=== PATIENT | female | born 1980 | race Hispanic/Latino ===

== ENCOUNTER 2020-05-26 08:20 | Emergency (ER) | payer SELFPAY ==
[2020-05-26 08:53] LABS: Urine Blood 3+ (Negative); Urine Glucose Negative (Negative); Urine Protein 3+ (Negative); Urine Specific Gravity >=1.030 (1.005-1.030); Urine pH 6.5 (5.0-7.0)
[2020-05-26] MEDS ORDERED: NA CHLORIDE 0.9% 1,000 ML ONE (09:26)
[2020-05-26] MEDS ORDERED: MORPHINE 2 MG/ML SYR ONE ×2 (09:26→10:55)
[2020-05-26] MEDS ORDERED: ONDANSETRON 4 MG/2 ML VIAL ONE (09:26)
[2020-05-26] MEDS ORDERED: CEFTRIAXONE/SWI 1gm 1 GM/10 ML SYR ONE (09:27)
[2020-05-26 09:31] LABS: Absolute Lymphocytes (CBC) 1.8 K/uL (0.7-4.9); Basophils % 0.4 % (0-1.3); MPV 8.6 fL (7.6-11.3); RBC Red Blood Cell Count 3.77 M/uL (3.86-4.86)
[2020-05-26 09:36] LABS: Urine Specific Gravity/Preg >1.030 (1.005-1.030)
[2020-05-26 09:43] LABS: ALT/SGPT 20 U/L (12-78); AST/SGOT 18 U/L (15-37); Albumin 3.6 g/dL (3.4-5.0); Alkaline Phosphatase 119 U/L (45-117); BUN Blood Urea Nitrogen 17 mg/dL (7-18); Bicarbonate 25 mmol/L (21-32); Bilirubin Direct < 0.1 mg/dL (0-0.2); Bilirubin Total 0.4 mg/dL (0.2-1.0); Glucose Level 98 mg/dL (74-106); Lipase 82 U/L (73-393); Potassium 3.8 mmol/L (3.5-5.1); Protein, Total 7.5 g/dL (6.4-8.2); Sodium Level 139 mmol/L (136-145)
--- NOTE | 2020-05-26 10:34 | RAD REPORT ---
EXAM DESCRIPTION: CT - Abdomen Pelvis W Contrast - 05/26/2020 9:56 am CLINICAL HISTORY: Abdominal pain COMPARISON: none. TECHNIQUE: Computed axial tomography of the abdomen pelvis was obtained. 100 cc Isovue-300 was admin istered intravenously. Oral contrast was not requested which limits evaluation of bowel and appendix. All CT scans are performed using dose optimization technique as appropriate and may include automated exposure control or mA/KV adjustment according to patient size. FINDINGS: The liver, spleen, pancreas, adrenal and kidneys appear unremarkable. There is no evidence of diverticulitis. Appendix is not clearly seen. Cholecystectomy Bladder wall is thickened. Small right inguinal hernia contains IMPRESSION: Thickened bladder wall may indicate cystitis
[2020-05-26] MEDS ORDERED: Levofloxacin500mg IV 500 MG/100 ML BAG IV ONE (10:39)
--- NOTE | 2020-05-26 11:15 | ER ---
Nurse's Notes [facility] Name: Eden Gallardo Age: 40 yrs Sex: Female : 1980 Arrival Date: 05/26/2020 Time: 08:21 Bed 19 Private MD: Diagnosis: Dysuria;Urinary tract infection, site not specified;Abdominal tenderness Presentation: 05/26 08:53 Chief complaint: Patient states: "I am having some bleeding for the past 2 days with jd3 cramping in my lower stomach that travels to my back on both sides.". Coronavirus screen: At this time, the client does not indicate any symptoms associated with coronavirus-19. Ebola Screen: Patient negative for fever greater than or equal to 101.5 degrees Fahrenheit, and additional compatible Ebola Virus Disease symptoms. Initial Sepsis Screen: Does the patient meet any 2 criteria? No. Patient's initial sepsis screen is negative. Does the patient have a suspected source of infection? No. Patient's initial sepsis screen is negative. Risk Assessment: Do you want to hurt yourself or someone else? Patient reports no desire to harm self or others. Onset of symptoms was May 24, 2020. 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 - Social history:: Smoking status: Patient denies any tobacco usage or history of. Screenin:59 Abuse screen: Denies threats or abuse. Nutritional screening: No deficits noted. jd3 Tuberculosis screening: No symptoms or risk factors identified. Fall Risk Ambulatory Aid- None/Bed Rest/Nurse Assist (0 pts). Gait- Normal/Bed Rest/Wheelchair (0 pts) Mental Status- Oriented to own ability (0 pts). Total Duran Fall Scale indicates No Risk (0-24 pts). Assessment: 08:56 General: Appears in no apparent distress. comfortable, Behavior is calm, cooperative, jd3 appropriate for age. Pain: Complains of pain in suprapubic area Pain radiates to low back area Quality of pain is described as aching, crampy. Neuro: Level of Consciousness is awake, alert, obeys commands, Oriented to person, place, time, situation. Cardiovascular: Denies chest pain, Capillary refill < 3 seconds Patient's skin is warm and dry. Respiratory: Airway is patent Respiratory effort is even, unlabored, Respiratory pattern is regular, symmetrical, Denies cough, shortness of breath. GI: Patient currently denies diarrhea, nausea, vomiting. : Urine is blood tinged, Reports cramping, vaginal bleeding that is spotty. EENT: No signs and/or symptoms were reported regarding the EENT system. Derm: Skin is intact, Skin is dry, Skin is normal, Skin temperature is warm. Musculoskeletal: Circulation, motion, and sensation intact. Range of motion: intact in all extremities. 10:04 Reassessment: Patient appears in no apparent distress at this time. Patient and/or jd3 family updated on plan of care and expected duration. Pain level reassessed. Patient is alert, oriented x 3, equal unlabored respirations, skin warm/dry/pink. Patient states feeling better. Vital Signs: 08:55 BP 112 / 74; Pulse 70; Resp 16 S; Temp 98.0(O); Pulse Ox 100% on R/A; Weight 81.65 kg jd3 (R); Pain 10/10; 10:04 BP 109 / 69; Pulse 91; Resp 16 S; Pulse Ox 100% on R/A; jd3 ED Course: 08:21 Patient arrived in ED. am2 08:52 Jose Ashraf MD is Attending Physician. quinton 08:53 Fredi Burch, TARA is Primary Nurse. jd3 08:55 Triage completed. jd3 08:56 Arm band placed on. jd3 08:59 Patient has correct armband on for positive identification. Placed in gown. Bed in low jd3 position. Call light in reach. Side rails up X 1. Adult w/ patient. Pulse ox on. NIBP on. 09:17 Inserted saline lock: 20 gauge in right antecubital area, using aseptic technique. jd3 Blood collected. placed by [employer] supervised by Gareth PACHECO. 09:55 Urine Dipstick-Ancillary [facility] 09:56 CT Abd/Pelvis - IV Contrast Only In Process Unspecified. EDMT 09:56 Urine collected: clean catch specimen, clear. [facility] 11:13 Jackson Anderson MD is Referral Physician. [facility] 12:05 No provider procedures requiring assistance completed. IV discontinued, intact, iw bleeding controlled, No redness/swelling at site. Pressure dressing applied. Administered Medications: 09:39 Drug: NS 0.9% 1000 ml Route: IV; Rate: 1 bolus; Site: right antecubital; jd3 09:39 Drug: morphine 2 mg Route: IVP; Site: right antecubital; jd3 10:30 Follow up: Response: No adverse reaction; RASS: Alert and Calm (0) jd3 09:39 Drug: Zofran (Ondansetron) 4 mg Route: IVP; Site: right antecubital; jd3 10:30 Follow up: Response: No adverse reaction iw 09:39 Drug: Rocephin - (cefTRIAXone) 1 grams Route: IVPB; Infused Over: 30 mins; Site: right jd3 antecubital; 10:37 Drug: levofloxacin 500 mg Volume: 100 ml; Route: IVPB; Infused Over: 60 mins; Site: jd3 right antecubital; 11:35 Follow up: IV Status: Completed infusion iw 10:42 Drug: morphine 2 mg Route: IVP; Site: right antecubital; jd3 12:00 Follow up: Response: No adverse reaction; Pain is decreased iw Outcome: 11:15 Discharge ordered by . [facility] 12:05 Discharged to home ambulatory. 12:05 Condition: good 12:05 Discharge instructions given to patient, Instructed on discharge instructions, follow up and referral plans. medication usage, Demonstrated understanding of instructions, follow-up care, medications, Prescriptions given X 3. 12:05 Patient left the ED. Signatures: Dispatcher [employer] EDMT Jose Ashraf MD MD cha Williams, Irene, RN TARA Arminda Rahman [facility] Patsy Matthew Jonathon, RN RN jd3
--- NOTE | 2020-05-26 11:15 | EDPHYS ---
Physician Documentation [facility] Name: Eden Gallardo Age: 40 yrs Sex: Female : 1980 Arrival Date: 05/26/2020 Time: 08:21 Bed 19 Private MD: ED Physician Jose Ashraf HPI: 05/26 09:01 This 40 yrs old Female presents to ER via Ambulatory with complaints of quinton Vaginal Bleeding, Pelvic Pain. 09:01 The patient presents with urinary symptoms, dysuria, frequency. Onset: The quinton symptoms/episode began/occurred 3 day(s) ago. [place] MATE: 08:55 LMP N/A - Irregular menses jd3 Historical: - Allergies: 08:55 No Known Allergies; jd3 - Home Meds: 08:55 None [Active]; jd3 - PMHx: 08:55 None; jd3 - PSHx: 08:55 ; jd3 - Immunization history:: Adult Immunizations not immunized. - Social history:: Smoking status: Patient denies any tobacco usage or history of. ROS: 09:02 Constitutional: Negative for fever, chills, and weight loss, Eyes: Negative for injury, quinton pain, redness, and discharge, ENT: Negative for injury, pain, and discharge, Neck: Negative for injury, pain, and swelling, Cardiovascular: Negative for chest pain, palpitations, and edema, Respiratory: Negative for shortness of breath, cough, wheezing, and pleuritic chest pain, Back: Negative for injury and pain, MS/Extremity: Negative for injury and deformity, Skin: Negative for injury, rash, and discoloration, Neuro: Negative for headache, weakness, numbness, tingling, and seizure, Psych: Negative for depression, anxiety, suicide ideation, homicidal ideation, and hallucinations, Allergy/Immunology: Negative for hives, rash, and allergies, Endocrine: Negative for neck swelling, polydipsia, polyuria, polyphagia, and marked weight changes, Hematologic/Lymphatic: Negative for swollen nodes, abnormal bleeding, and unusual bruising. 09:02 Abdomen/GI: Positive for abdominal pain, of the left upper quadrant, right lower quadrant and left lower quadrant. 09:02 : Positive for urinary frequency, burning with urination, difficulty urinating. Exam: 09:02 Constitutional: This is a well developed, well nourished patient who is awake, alert, quinton and in no acute distress. Head/Face: Normocephalic, atraumatic. Eyes: Pupils equal round and reactive to light, extra-ocular motions intact. Lids and lashes normal. Conjunctiva and sclera are non-icteric and not injected. Cornea within normal limits. Periorbital areas with no swelling, redness, or edema. ENT: Nares patent. No nasal discharge, no septal abnormalities noted. Tympanic membranes are normal and external auditory canals are clear. Oropharynx with no redness, swelling, or masses, exudates, or evidence of obstruction, uvula midline. Mucous membranes moist. Neck: Trachea midline, no thyromegaly or masses palpated, and no cervical lymphadenopathy. Supple, full range of motion without nuchal rigidity, or vertebral point tenderness. No Meningismus. Chest/axilla: Normal chest wall appearance and motion. Nontender with no deformity. No lesions are appreciated. Cardiovascular: Regular rate and rhythm with a normal S1 and S2. No gallops, murmurs, or rubs. Normal PMI, no JVD. No pulse deficits. Respiratory: Lungs have equal breath sounds bilaterally, clear to auscultation and percussion. No rales, rhonchi or wheezes noted. No increased work of breathing, no retractions or nasal flaring. Back: No spinal tenderness. No costovertebral tenderness. Full range of motion. Skin: Warm, dry with normal turgor. Normal color with no rashes, no lesions, and no evidence of cellulitis. MS/ Extremity: Pulses equal, no cyanosis. Neurovascular intact. Full, normal range of motion. Neuro: Awake and alert, GCS 15, oriented to person, place, time, and situation. Cranial nerves II-XII grossly intact. Motor strength 5/5 in all extremities. Sensory grossly intact. Cerebellar exam normal. Normal gait. Psych: Awake, alert, with orientation to person, place and time. Behavior, mood, and affect are within normal limits. 09:02 Abdomen/GI: Inspection: abdomen appears normal, Bowel sounds: normal, Palpation: moderate abdominal tenderness, in the suprapubic area, left upper quadrant, right lower quadrant and left lower quadrant, Liver: no appreciated palpable abnormalities, Hernia: not appreciated. Vital Signs: 08:55 BP 112 / 74; Pulse 70; Resp 16 S; Temp 98.0(O); Pulse Ox 100% on R/A; Weight 81.65 kg jd3 (R); Pain 10/10; 10:04 BP 109 / 69; Pulse 91; Resp 16 S; Pulse Ox 100% on R/A; jd3 MDM: 08:52 Patient medically screened. [facility] 09:03 Differential diagnosis: kidney stone, nonspecific abdominal pain, urinary tract quinton infection, appendicitis, diverticulitis, non-specific abd pain, pancreatitis, Ureterolithiasis, urinary tract infection. Data reviewed: vital signs, nurses notes, lab test result(s), radiologic studies, CT scan. 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 Counseling: I had a detailed discussion with the patient and/or guardian regarding: the historical points, exam findings, and any diagnostic results supporting the discharge/admit diagnosis, lab results, radiology results. 05/26 08:53 Order name: Urine Dipstick-Ancillary [facility] 05/26 08:53 Order name: Urine Dipstick-Ancillary; Complete Time: 09:44 [facility] 05/26 08:55 Order name: Urine --Ancillary (enter results); Complete Time: 09:44 05/26 09:01 Order name: Basic Metabolic Panel; Complete Time: 09:44 [facility] 05/26 09:01 Order name: CBC with Diff; Complete Time: 09:44 [facility] 05/26 09:01 Order name: Hepatic Function; Complete Time: 09:44 [facility] 05/26 09:01 Order name: Lipase; Complete Time: 09:44 [facility] 05/26 09:01 Order name: IV Saline Lock; Complete Time: 09:20 [facility] 05/26 09:01 Order name: CT Abd/Pelvis - IV Contrast Only; Complete Time: 11:13 [facility] 05/26 09:01 Order name: Labs collected and sent; Complete Time: 09:20 [facility] Administered Medications: 09:39 Drug: NS 0.9% 1000 ml Route: IV; Rate: 1 bolus; Site: right antecubital; jd3 09:39 Drug: morphine 2 mg Route: IVP; Site: right antecubital; jd3 10:30 Follow up: Response: No adverse reaction; RASS: Alert and Calm (0) jd3 09:39 Drug: Zofran (Ondansetron) 4 mg Route: IVP; Site: right antecubital; jd3 10:30 Follow up: Response: No adverse reaction iw 09:39 Drug: Rocephin - (cefTRIAXone) 1 grams Route: IVPB; Infused Over: 30 mins; Site: right jd3 antecubital; 10:37 Drug: levofloxacin 500 mg Volume: 100 ml; Route: IVPB; Infused Over: 60 mins; Site: jd3 right antecubital; 11:35 Follow up: IV Status: Completed infusion iw 10:42 Drug: morphine 2 mg Route: IVP; Site: right antecubital; jd3 12:00 Follow up: Response: No adverse reaction; Pain is decreased iw Disposition: 05/26/20 11:15 Discharged to Home. Impression: Dysuria, Urinary tract infection, site not specified, Abdominal tenderness. - Condition is Stable. - Discharge Instructions: Abdominal Pain, Adult, Dysuria, Urinary Tract Infection, Adult, Urinary Tract Infection, Adult, [id number], Abdominal Pain, Adult, [id number]. - Prescriptions for Levaquin 500 mg Oral Tablet - take 1 tablet by ORAL route once daily for 7 days; 7 tablet. Pyridium 200 mg Oral Tablet - take 1 tablet by ORAL route every 8 hours for 3 days; 9 tablet. Bactrim DS 800- 160 mg Oral Tablet - take 1 tablet by ORAL route every 12 hours for 5 days; 10 tablet. - Medication Reconciliation Form, Thank You Letter, Antibiotic Education, Prescription Opioid Use, Work release form form. - Follow up: Private Physician; When: 2 - 3 days; Reason: Recheck today's complaints, Continuance of care, Re-evaluation by your physician. Follow up: Jackson Anderson MD; When: 2 - 3 days; Reason: Recheck today's complaints, Re-evaluation by your physician. - Problem is new. - Symptoms have improved. Signatures: Dispatcher [employer] Jose Fisher MD MD cha Williams, Irene, RN RN iw Fredi Burch RN RN jd3 Corrections: (The following items were deleted from the chart) 12:05 11:15 05/26/2020 11:15 Discharged to Home. Impression: Dysuria; Urinary tract iw infection, site not specified; Abdominal tenderness. Condition is Stable. Forms are Medication Reconciliation Form, Thank You Letter, Antibiotic Education, Prescription Opioid Use. Follow up: Private Physician; When: 2 - 3 days; Reason: Recheck today's complaints, Continuance of care, Re-evaluation by your physician. Follow up: Jackson Anderson; When: 2 - 3 days; Reason: Recheck today's complaints, Re-evaluation by your physician. Problem is new. Symptoms have improved. quinton
[2020-05-26 12:28] VITALS: TEMP 98; O2SAT 100
[2020-05-26 12:30] VITALS: BP 109/69
== END 2020-05-26 12:05 | disposition home or self-care (01) ==
LOC: ER 08:20
DX: N39.0 Urinary tract infection, site not specified (principal); R10.819 Abdominal tenderness, unspecified site
CPT/HCPCS: 36415; 74177; 80048; 80076; 81003; 81025; 83690; 85025; 96365; 96375; 99284; J0696; J2270; J2405; J7030; Q9967

== ENCOUNTER 2021-08-18 06:13 | Emergency (ER) | payer SELFPAY ==
[2021-08-18] MEDS ORDERED: DIAZEPAM 2 MG TABLET ONE (07:19)
[2021-08-18] MEDS ORDERED: ONDANSETRON 4 MG/2 ML VIAL ONE (07:19)
[2021-08-18] MEDS ORDERED: KETOROLAC 30 MG/ML INJ ONE (07:19)
[2021-08-18] MEDS ORDERED: dexAMETHasone 10 MG/ML VIAL ONE (07:19)
[2021-08-18] MEDS ORDERED: HYDROMORPHONE HCL 1 MG/ML INJ ONE (07:19)
--- NOTE | 2021-08-18 07:24 | RAD REPORT ---
EXAM DESCRIPTION: Shoulder Right 2 View - 08/18/2021 6:50 am CLINICAL HISTORY: PAIN COMPARISON: No comparisons TECHNIQUE: Internal and external rotation views of the right shoulder were obtained. FINDINGS: There is no fracture or dislocation. AC joint is normal in appearance. No acute or suspic ious findings. IMPRESSION: Negative two-view right shoulder examination.
[2021-08-18 07:28] LABS: Urine Blood Negative (Negative); Urine Glucose Negative (Negative); Urine Protein Negative (Negative)
[2021-08-18 07:37] LABS: Lymphocytes % 22.7 % (15.3-44.8); MCV 73.3 fL (80-100); RBC Red Blood Cell Count 3.67 M/uL (3.86-4.86)
[2021-08-18] MEDS ORDERED: CEFTRIAXONE 1000 MG/VIAL ONE (07:49)
[2021-08-18] MEDS ORDERED: NA CHLORIDE 0.9% 1,000 ML ONE (07:50)
[2021-08-18 08:14] LABS: Albumin 3.6 g/dL (3.4-5.0); Bilirubin Total 0.3 mg/dL (0.2-1.0); Potassium 3.9 mmol/L (3.5-5.1); Protein, Total 7.2 g/dL (6.4-8.2)
--- NOTE | 2021-08-18 08:19 | RAD REPORT ---
EXAM DESCRIPTION: CT - C Spine Wo Con - 08/18/2021 7:40 am CLINICAL HISTORY: Right upper extremity radiculopathy, no precipitating event COMPARISON: None. TECHNIQUE: Axial 2 mm thick images of the cervical spine were obtained with sagittal and coronal rec onstruction images generated and reviewed. All CT scans are performed using dose optimization technique as appropriate and may include automated exposure control or mA/KV adjustment according to patient size. FINDINGS: Cervical body height and alignment are normal. No disk space narrowing. No fracture or acu te bony abnormality. No paraspinal mass or hematoma. Central canal and foraminal assessment are inherently limited on CT imaging. There is no gross eviden ce for central canal abnormality, disc herniation or significant disc bulge. No bony hypertrophy encr oaching into the central canal or foramina. IMPRESSION: Negative CT cervical spine examination. Central canal and foraminal assessment are inherently limited on CT imaging. Ongoing concerns for dis c herniation, central canal abnormality or occult bone process can be addressed with outpatient MRI c ervical spine imaging.
--- NOTE | 2021-08-18 08:37 | EDPHYS ---
Physician Documentation [facility] Name: Eden Gallardo Age: 41 yrs Sex: Female : 1980 Arrival Date: 08/18/2021 Time: 06:16 Bed 5 Private MD: ED Physician Chuck Larsen HPI: 08/18 06:58 This 41 yrs old Female presents to ER via Ambulatory with complaints of quinton Shoulder Pain. 06:58 The patient or guardian complains of decreased range of motion, pain, that is acute. quinton right shoulder. Context: The problem was sustained at an unknown site. Onset: The symptoms/episode began/occurred 2 day(s) ago. Modifying factors: the symptoms are alleviated by remaining still, The symptoms are aggravated by movement. Associated signs and symptoms: The patient has no apparent associated signs or symptoms. Treatment prior to arrival includes: no previous treatment. The patient has not experienced similar symptoms in the past. Historical: - Allergies: 06:37 No Known Allergies; aa9 - Home Meds: 06:37 None [Active]; aa9 - PMHx: 06:37 None; aa9 - PSHx: 06:37 None; aa9 - Immunization history:: Client reports having NOT received the Covid vaccine. - Social history:: Smoking status: Patient denies any tobacco usage or history of. - Family history:: not pertinent. ROS: 06:58 Constitutional: Negative for fever, chills, and weight loss, Eyes: Negative for injury, quinton pain, redness, and discharge, ENT: Negative for injury, pain, and discharge, Neck: Negative for injury, pain, and swelling, Cardiovascular: Negative for chest pain, palpitations, and edema, Respiratory: Negative for shortness of breath, cough, wheezing, and pleuritic chest pain, Abdomen/GI: Negative for abdominal pain, nausea, vomiting, diarrhea, and constipation, Back: Negative for injury and pain, : Negative for injury, bleeding, discharge, and swelling, Skin: Negative for injury, rash, and discoloration, Neuro: Negative for headache, weakness, numbness, tingling, and seizure, Psych: Negative for depression, anxiety, suicide ideation, homicidal ideation, and hallucinations, Allergy/Immunology: Negative for hives, rash, and allergies, Endocrine: Negative for neck swelling, polydipsia, polyuria, polyphagia, and marked weight changes, Hematologic/Lymphatic: Negative for swollen nodes, abnormal bleeding, and unusual bruising. 06:58 MS/extremity: Positive for decreased range of motion, pain, tenderness, of the anterior aspect of right shoulder and posterior aspect of right shoulder. Exam: 06:58 Constitutional: This is a well developed, well nourished patient who is awake, alert, quinton and in no acute distress. Head/Face: Normocephalic, atraumatic. Eyes: Pupils equal round and reactive to light, extra-ocular motions intact. Lids and lashes normal. Conjunctiva and sclera are non-icteric and not injected. Cornea within normal limits. Periorbital areas with no swelling, redness, or edema. ENT: Nares patent. No nasal discharge, no septal abnormalities noted. Tympanic membranes are normal and external auditory canals are clear. Oropharynx with no redness, swelling, or masses, exudates, or evidence of obstruction, uvula midline. Mucous membranes moist. Neck: Trachea midline, no thyromegaly or masses palpated, and no cervical lymphadenopathy. Supple, full range of motion without nuchal rigidity, or vertebral point tenderness. No Meningismus. Chest/axilla: Normal chest wall appearance and motion. Nontender with no deformity. No lesions are appreciated. Cardiovascular: Regular rate and rhythm with a normal S1 and S2. No gallops, murmurs, or rubs. Normal PMI, no JVD. No pulse deficits. Respiratory: Lungs have equal breath sounds bilaterally, clear to auscultation and percussion. No rales, rhonchi or wheezes noted. No increased work of breathing, no retractions or nasal flaring. Abdomen/GI: Soft, non-tender, with normal bowel sounds. No distension or tympany. No guarding or rebound. No evidence of tenderness throughout. Back: No spinal tenderness. No costovertebral tenderness. Full range of motion. Skin: Warm, dry with normal turgor. Normal color with no rashes, no lesions, and no evidence of cellulitis. Neuro: Awake and alert, GCS 15, oriented to person, place, time, and situation. Cranial nerves II-XII grossly intact. Motor strength 5/5 in all extremities. Sensory grossly intact. Cerebellar exam normal. Normal gait. 06:58 Musculoskeletal/extremity: Extremities: grossly normal except: noted in the anterior aspect of right shoulder and posterior aspect of right shoulder: decreased ROM, pain, ROM: limited active range of motion, limited passive range of motion, limited active range of motion due to pain, limited passive range of motion due to pain, Circulation is intact in all extremities. Sensation intact. Compartment Syndrome exam of affected extremity: is normal. no numbness, no tingling, no sensation deficit, no palor, no weak pulses, severe pain, Joints: All joints are normal except the right shoulder displays tenderness, DVT Exam: negative Homans' sign noted on exam, no appreciated bluish discoloration, no erythema, no increased warmth, pain, swelling, tenderness. Vital Signs: 06:29 BP 106 / 69; Pulse 62; Temp 98.4; Pulse Ox 100% on R/A; Weight 77.11 kg; Height 5 ft. 3 wm in. (160.02 cm); Pain 10/10; 07:32 BP 100 / 68; Pulse 65; Resp 16; Pulse Ox 100% ; bp 08:30 BP 115 / 65; Pulse 71; Resp 16; Pulse Ox 100% ; bp 06:29 Body Mass Index 30.11 (77.11 kg, 160.02 cm) wm MDM: 06:23 Patient medically screened. quinton 07:01 Differential diagnosis: Anterior dislocation without fracture, humeral head fracture. quinton Data reviewed: vital signs, nurses notes, lab test result(s), EKG, radiologic studies, CT scan, plain films. Data interpreted: athletic monitor: not applicable for this patient encounter. rate is 62 beats/min, rhythm is regular, Pulse oximetry: on room air is 100 %. Test interpretation: by ED physician or midlevel provider: plain radiologic studies. Counseling: I had a detailed discussion with the patient and/or guardian regarding: the historical points, exam findings, and any diagnostic results supporting the discharge/admit diagnosis, lab results, radiology results, the need for outpatient follow up, for definitive care, a family practitioner, a orthopedic surgeon. 08/18 06:57 Order name: CBC with Diff; Complete Time: 07:48 quinton 08/18 06:57 Order name: Comprehensive Metabolic Panel; Complete Time: 08:33 quinton 08/18 06:38 Order name: Shoulder Right (2 View) XRAY; Complete Time: 07:35 aa9 08/18 07:28 Order name: Urine Dipstick-Ancillary; Complete Time: 07:35 EDMS 08/18 07:28 Order name: Urine --Ancillary (enter results) 08/18 07:36 Order name: Urine Culture [facility] 08/18 06:57 Order name: CT C Spine; Complete Time: 08:33 quinton 08/18 06:57 Order name: Urine Dipstick-Ancillary (obtain specimen); Complete Time: 07:31 quinton 08/18 06:57 Order name: Urine Test (obtain specimen); Complete Time: 07:31 [facility] Administered Medications: 07:15 Drug: Ketorolac 30 mg Route: IVP; Site: left antecubital; bp 09:00 Follow up: Response: No adverse reaction; Pain is decreased bp 07:15 Drug: Dilaudid (HYDROmorphone) 1 mg Route: IVP; Site: left antecubital; bp 08:59 Follow up: Response: No adverse reaction bp 07:15 Drug: Zofran (Ondansetron) 4 mg Route: IVP; Site: left antecubital; bp 08:58 Follow up: Response: No adverse reaction bp 07:15 Drug: Decadron - Dexamethasone 10 mg Route: IVP; Site: right antecubital; bp 08:58 Follow up: Response: No adverse reaction bp 07:15 CANCELLED (Duplicate Order): Valium (diazepam) 5 mg PO once quinton 07:15 Drug: Valium (diazepam) 4 mg Route: PO; bp 08:58 Follow up: Response: No adverse reaction bp 07:48 Drug: Rocephin (cefTRIAXone) 1 grams Route: IV; Rate: per protocol; Site: left bp antecubital; 08:55 Follow up: IV Status: Completed infusion; IV Intake: 1000ml bp 07:48 Drug: NS 0.9% 1000 ml Route: IV; Rate: 1 bolus; Site: left antecubital; bp 08:54 Follow up: IV Status: Completed infusion; IV Intake: 1000ml bp Disposition Summary: 08/18/21 08:36 Discharge Ordered Location: Home ms3 Problem: new ms3 Symptoms: have improved ms3 Condition: Stable ms3 Diagnosis - Pain in right shoulder ms3 - Cervical disc disorder with radiculopathy, unspecified cervical region ms3 - Anemia, unspecified ms3 Followup: quinton - With: Private Physician - When: 2 - 3 days - Reason: Recheck today's complaints, Continuance of care, Re-evaluation by your physician Followup: quinton - With: - When: 2 - 3 days - Reason: Recheck today's complaints, Re-evaluation by your physician Discharge Instructions: - Discharge Summary Sheet quinton - Joint Pain quinton - Cervical Radiculopathy quinton - Musculoskeletal Pain quinton - Shoulder Pain quinton - How to Use Cold Therapy, [id number] quinton - Shoulder Pain, Jmdo-vr-Edrb quinton - Urinary Tract Infection, Adult, [id number] quinton Forms: - Work release form ms3 - Medication Reconciliation Form ms3 - Thank You Letter ms3 - Antibiotic Education ms3 - Prescription Opioid Use ms3 Prescriptions: - Ibuprofen 600 mg Oral Tablet - take 1 tablet by ORAL route every 6 hours As needed take with food; 30 tablet; quinton Refills: 0, Product Selection Permitted - Medrol (Tonny) 4 mg Oral Tablets, Dose Pack - take 1 tablet by ORAL route as directed - follow package instructions; 1 quinton packet; Refills: 0, Product Selection Permitted - Cyclobenzaprine 5 mg Oral Tablet - take 1 tablet by ORAL route 3 times per day As needed; 15 tablet; Refills: 0, quinton Product Selection Permitted - Tylenol-Codeine #3 300 mg-30 mg Oral - take 2 tablet by ORAL route every 6 hours; 24 tablet; Refills: 0, Product quinton Selection Permitted Signatures: Dispatcher [employer] Jose Fisher MD MD cha Peltier, Brian, RN RN bp Sims, Marcus, DO DO ms3 Maira Gonzalez RN RN aa9 Corrections: (The following items were deleted from the chart) 07:15 06:57 Valium (diazepam) 5 mg PO once ordered. quinton quinton
--- NOTE | 2021-08-18 08:37 | ER ---
Nurse's Notes [facility] Name: Eden Gallardo Age: 41 yrs Sex: Female : 1980 Arrival Date: 08/18/2021 Time: 06:16 Bed 5 Private MD: Diagnosis: Pain in right shoulder;Cervical disc disorder with radiculopathy, unspecified cervical region;Anemia, unspecified Presentation: 08/18 06:36 Chief complaint: Patient's son or daughter states: "Her right arm started hurting aa9 yesterday but today it got a lot worse" denies any injury. Coronavirus screen: At this time, the client does not indicate any symptoms associated with coronavirus-19. Ebola Screen: No symptoms or risks identified at this time. Initial Sepsis Screen: Does the patient meet any 2 criteria? No. Patient's initial sepsis screen is negative. Does the patient have a suspected source of infection? No. Patient's initial sepsis screen is negative. Risk Assessment: Do you want to hurt yourself or someone else? Patient reports no desire to harm self or others. Onset of symptoms was August 17, 2021. 06:36 Method Of Arrival: Ambulatory aa9 06:36 Acuity: DIALLO 3 aa9 Historical: - Allergies: 06:37 No Known Allergies; aa9 - Home Meds: 06:37 None [Active]; aa9 - PMHx: 06:37 None; aa9 - PSHx: 06:37 None; aa9 - Immunization history:: Client reports having NOT received the Covid vaccine. - Social history:: Smoking status: Patient denies any tobacco usage or history of. - Family history:: not pertinent. Screenin:32 Abuse screen: Denies threats or abuse. Denies injuries from another. Nutritional bp screening: No deficits noted. Tuberculosis screening: No symptoms or risk factors identified. Fall Risk None identified. Assessment: 06:37 General: Appears uncomfortable, Behavior is calm, cooperative. Pain: Complains of pain aa9 in right arm. Neuro: Level of Consciousness is awake, alert, obeys commands, Oriented to person, place, time, situation. Respiratory: Respiratory effort is even, unlabored. Musculoskeletal: Reports pain in right arm. 07:33 Reassessment: RECD REPORT FROM [facility]. 41YO HF P/W R SHOULDER PAIN, DENIES TRAUMA. bp 08:52 Reassessment: PT D/C HOME AMBULATORY WITH FAMILY, DX WITH CERVICAL RADICULOPATHY AND bp UTI. Vital Signs: 06:29 BP 106 / 69; Pulse 62; Temp 98.4; Pulse Ox 100% on R/A; Weight 77.11 kg; Height 5 ft. 3 wm in. (160.02 cm); Pain 10/10; 07:32 BP 100 / 68; Pulse 65; Resp 16; Pulse Ox 100% ; bp 08:30 BP 115 / 65; Pulse 71; Resp 16; Pulse Ox 100% ; bp 06:29 Body Mass Index 30.11 (77.11 kg, 160.02 cm) wm ED Course: 06:16 Patient arrived in ED. bp1 06:23 Jose Ashraf MD is Attending Physician. quinton 06:33 Maira Gonzalez, RN is Primary Nurse. aa9 06:37 Triage completed. aa9 06:37 Arm band placed on. aa9 06:51 Shoulder Right (2 View) XRAY In Process Unspecified. EDMS 07:15 Inserted saline lock: 20 gauge in left antecubital area, using aseptic technique. Blood bp collected. 07:32 Patient has correct armband on for positive identification. Bed in low position. Call bp light in reach. Side rails up X2. Adult w/ patient. 07:33 Primary Nurse role handed off by Maira Gonzalez, RN bp 07:33 Brandon Price, TARA is Primary Nurse. bp 07:42 CT C Spine In Process Unspecified. EDMS 07:50 Attending Physician role handed off by Jose Ashraf MD ms3 07:50 Chuck Larsen DO is Attending Physician. ms3 08:36 Joe Nieto MD is Referral Physician. ms3 08:54 No provider procedures requiring assistance completed. IV discontinued, intact, bp bleeding controlled, No redness/swelling at site. Pressure dressing applied. Administered Medications: 07:15 Drug: Ketorolac 30 mg Route: IVP; Site: left antecubital; bp 09:00 Follow up: Response: No adverse reaction; Pain is decreased bp 07:15 Drug: Dilaudid (HYDROmorphone) 1 mg Route: IVP; Site: left antecubital; bp 08:59 Follow up: Response: No adverse reaction bp 07:15 Drug: Zofran (Ondansetron) 4 mg Route: IVP; Site: left antecubital; bp 08:58 Follow up: Response: No adverse reaction bp 07:15 Drug: Decadron - Dexamethasone 10 mg Route: IVP; Site: right antecubital; bp 08:58 Follow up: Response: No adverse reaction bp 07:15 CANCELLED (Duplicate Order): Valium (diazepam) 5 mg PO once quinton 07:15 Drug: Valium (diazepam) 4 mg Route: PO; bp 08:58 Follow up: Response: No adverse reaction bp 07:48 Drug: Rocephin (cefTRIAXone) 1 grams Route: IV; Rate: per protocol; Site: left bp antecubital; 08:55 Follow up: IV Status: Completed infusion; IV Intake: 1000ml bp 07:48 Drug: NS 0.9% 1000 ml Route: IV; Rate: 1 bolus; Site: left antecubital; bp 08:54 Follow up: IV Status: Completed infusion; IV Intake: 1000ml bp Medication: 08:54 VIS not applicable for this client. bp Intake: 08:54 IV: 1000ml; Total: 1000ml. bp 08:55 IV: 1000ml; Total: 2000ml. bp Outcome: 08:36 Discharge ordered by . ms3 08:54 Discharged to home ambulatory, with family. bp 08:54 Condition: stable 08:54 Discharge instructions given to patient, Instructed on discharge instructions, follow up and referral plans. medication usage, Demonstrated understanding of instructions, follow-up care, medications, Prescriptions given X 4. 09:00 Patient left the ED. iw Signatures: Dispatcher [employer] EDMS Jose Ashraf MD MD cha Williams, Irene, RN Brandon Dover RN RN bp Chuck Larsen DO DO ms3 Jolynn Rodrigues [facility] Yoselin Pascual Aylin, RN RN aa9
[2021-08-18 09:07] VITALS: TEMP 98.4; O2SAT 100
[2021-08-18 09:16] VITALS: BP 115/65
== END 2021-08-18 09:00 | disposition home or self-care (01) ==
LOC: ER 06:13
DX: M50.10 Cervical disc disorder with radiculopathy, unspecified cervical region (principal); D64.9 Anemia, unspecified
CPT/HCPCS: 36415; 72125; 80053; 81003; 81025; 85025; 87086; 87088; 99284; J1100; J1170; J2405; J7030

== ENCOUNTER 2022-03-27 02:42 | Emergency (ER) | payer SELFPAY ==
[2022-03-27] MEDS ORDERED: dexAMETHasone 10 MG/ML VIAL ONE (03:36)
[2022-03-27] MEDS ORDERED: KETOROLAC 30 MG/ML INJ ONE (03:36)
[2022-03-27 03:39] LABS: Absolute Lymphocytes (CBC) 1.6 K/uL (0.7-4.9); Hematocrit 27.1 % (36.0-45.0); Lymphocytes % 19.7 % (15.3-44.8); MPV 8.4 fL (7.6-11.3); RBC Red Blood Cell Count 3.81 M/uL (3.86-4.86)
[2022-03-27 03:55] LABS: Potassium 3.5 mmol/L (3.5-5.1); Troponin High Sensitivity 5.6 pg/mL (<58.9)
--- NOTE | 2022-03-27 04:07 | ER ---
Nurse's Notes [facility] Name: Eden Diane Age: 41 yrs Sex: Female : 1980 Arrival Date: 03/27/2022 Time: 02:47 Bed 19 Private MD: Diagnosis: Pain in left shoulder Presentation: 03/27 03:01 Initial Sepsis Screen: Does the patient meet any 2 criteria? No. Patient's initial ha1 sepsis screen is negative. Does the patient have a suspected source of infection? No. Patient's initial sepsis screen is negative. 03:06 Chief complaint: Patient states: "My left shoulder hurts I do a lot of movement with my vc1 arms. I took some pain meds and then my chest started hurting.". Coronavirus screen: Vaccine status: Patient reports being unvaccinated. Client denies travel out of the [place] in the last 14 days. At this time, the client does not indicate any symptoms associated with coronavirus-19. Ebola Screen: Patient negative for fever greater than or equal to 101.5 degrees Fahrenheit, and additional compatible Ebola Virus Disease symptoms Patient denies exposure to infectious person. Patient denies travel to an Ebola-affected area in the 21 days before illness onset. No symptoms or risks identified at this time. Risk Assessment: Do you want to hurt yourself or someone else? Patient reports no desire to harm self or others. Onset of symptoms was March 27, 2022. 03:06 Method Of Arrival: Ambulatory vc1 03:06 Acuity: DIALLO 3 vc1 Triage Assessment: 03:08 General: Appears in no apparent distress. uncomfortable, Behavior is calm, cooperative, vc1 appropriate for age. Pain: Complains of pain in anterior aspect of left shoulder and posterior aspect of left shoulder Pain does not radiate. Pain currently is 10 out of 10 on a pain scale. EENT: No deficits noted. No signs and/or symptoms were reported regarding the EENT system. Neuro: Level of Consciousness is awake, alert, obeys commands, Oriented to person, place, time, situation, Appropriate for age. Cardiovascular: No deficits noted. Respiratory: Airway is patent Respiratory effort is even, unlabored, Respiratory pattern is regular, symmetrical. GI: No deficits noted. : No deficits noted. No signs and/or symptoms were reported regarding the genitourinary system. Derm: No deficits noted. No signs and/or symptoms reported regarding the dermatologic system. Musculoskeletal: No deficits noted. No signs and/or symptoms reported regarding the musculoskeletal system. Historical: - Allergies: 03:08 No Known Allergies; vc1 - Home Meds: 03:08 None [Active]; vc1 - PMHx: 03:08 None; vc1 - PSHx: 03:08 section; vc1 - Immunization history:: Client reports having NOT received the Covid vaccine. - Social history:: Smoking status: Patient denies any tobacco usage or history of. - Family history:: not pertinent. - Hospitalizations: : No recent hospitalization is reported. Screenin:09 [facility] ED Fall Risk Assessment (Adult) History of falling in the last 3 months, vc1 including since admission No falls in past 3 months (0 pts) Confusion or Disorientation No (0 pts) Intoxicated or Sedated No (0 pts) Impaired Gait No (0 pts) Mobility Assist Device Used No (0 pt) Altered Elimination No (0 pt) Score/Fall Risk Level 0 - 2 = Low Risk Oriented to surroundings, Maintained a safe environment, Educated pt \\T\\ family on fall prevention, incl call for assistance when getting out of bed. Abuse screen: Denies threats or abuse. Nutritional screening: No deficits noted. Tuberculosis screening: No symptoms or risk factors identified. Assessment: 03:01 General: Appears uncomfortable, Behavior is calm, cooperative. Pain: Complains of pain ha1 in posterior aspect of left shoulder Pain does not radiate. Pain at worst was 10 out of 10 on a pain scale. Quality of pain is described as throbbing, Is continuous. 03:01 Neuro: Level of Consciousness is awake, alert, obeys commands, Oriented to person, ha1 place, time, situation. Cardiovascular: Heart tones S1 S2 present Capillary refill < 3 seconds Patient's skin is warm and dry. Rhythm is sinus rhythm. Respiratory: Airway is patent Respiratory effort is even, unlabored, Respiratory pattern is regular, symmetrical, Breath sounds are clear bilaterally. GI: No signs and/or symptoms were reported involving the gastrointestinal system. Abdomen is flat, non-distended, Bowel sounds present X 4 quads. : No signs and/or symptoms were reported regarding the genitourinary system. EENT: No deficits noted. No signs and/or symptoms were reported regarding the EENT system. Derm: Skin is pink, warm \\T\\ dry. Musculoskeletal: Circulation, motion, and sensation intact. Range of motion: intact in all extremities. 04:00 Reassessment: Patient and/or family updated on plan of care and expected duration. Pain ha1 level reassessed. Patient is alert, oriented x 3, equal unlabored respirations, skin warm/dry/pink. Patient states feeling better. Patient states symptoms have improved. Vital Signs: 03:01 BP 122 / 66; Pulse 81; Resp 16; Temp 98.1; Pulse Ox 100% on R/A; ha1 03:06 Weight 68.04 kg; Height 5 ft. 1 in. (154.94 cm); Pain 10/10; vc1 04:00 BP 120 / 66; Pulse 80; Resp 16 S; Pulse Ox 100% on R/A; ha1 03:06 Body Mass Index 28.34 (68.04 kg, 154.94 cm) vc1 ED Course: 02:47 Patient arrived in ED. ja2 02:47 Marcin Angel MD is Attending Physician. rn 03:01 Patient has correct armband on for positive identification. Placed in gown. Bed in low ha1 position. Call light in reach. Side rails up X 1. 03:07 Bety Raza RN is Primary Nurse. ha1 03:08 Triage completed. vc1 03:09 Arm band placed on right wrist. vc1 03:15 Inserted saline lock: 20 gauge in left antecubital area, using aseptic technique. Blood ha1 collected. 03:27 XRAY Chest (1 view) In Process Unspecified. EDMS 03:28 Basic Metabolic Panel Sent. ha1 03:28 CBC with Diff Sent. ha1 03:28 NT PRO-BNP Sent. ha1 03:28 Troponin HS Sent. ha1 04:31 No provider procedures requiring assistance completed. IV discontinued, intact, ha1 bleeding controlled, No redness/swelling at site. Pressure dressing applied. Administered Medications: 03:27 Drug: Ketorolac 30 mg Route: IVP; Site: right antecubital; ha1 04:00 Follow up: Response: No adverse reaction; Pain is decreased ha1 03:30 Drug: Decadron - Dexamethasone 10 mg Route: IVP; Site: right antecubital; ha1 04:00 Follow up: Response: No adverse reaction ha1 Medication: 03:10 VIS not applicable for this client. vc1 Outcome: 04:06 Discharge ordered by . rn 04:32 Discharged to home ambulatory, with family. ha1 04:32 Condition: stable 04:32 Discharge instructions given to patient, family, Instructed on discharge instructions, follow up and referral plans. medication usage, Demonstrated understanding of instructions, follow-up care, medications, Prescriptions given X 1. 04:32 Patient left the ED. ha1 Signatures: Dispatcher [employer] EDMS Marcin Angel MD MD rn Alexander, Jessica ja2 Calcote, Vanessa, RN RN 1 Bety Raza RN RN ha1
--- NOTE | 2022-03-27 04:07 | EDPHYS ---
Physician Documentation [facility] Name: Eden Diane Age: 41 yrs Sex: Female : 1980 Arrival Date: 03/27/2022 Time: 02:47 Bed 19 Private MD: ED Physician Marcin Angel HPI: 03/27 03:48 This 41 yrs old Female presents to ER via Ambulatory with complaints of rn Shoulder Pain. 03:48 The patient or guardian complains of pain, that is acute. left shoulder. Onset: The rn symptoms/episode began/occurred yesterday. Modifying factors: the symptoms are alleviated by nothing. The symptoms are aggravated by lifting weight, movement, rotation of arm. Associated signs and symptoms: Pertinent positives: chest pain, Pertinent negatives: abdominal pain, neck pain, shortness of breath. Severity of symptoms: At their worst the symptoms were moderate, in the emergency department the symptoms are unchanged. The patient has experienced similar episodes in the past. The patient has not recently seen a physician. Pt reports left shoulder pain that began yesterday, hurts to rotate and lift, no injury, no fall, no neck pain, has had before but on right shoulder. 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 Took pain medication and muscle relaxer that she was prescribed for right shoulder and then started to have slight chest pain after taking pills. No current chest pain.. Historical: - Allergies: 03:08 No Known Allergies; vc1 - Home Meds: 03:08 None [Active]; vc1 - PMHx: 03:08 None; vc1 - PSHx: 03:08 section; vc1 - Immunization history:: Client reports having NOT received the Covid vaccine. - Social history:: Smoking status: Patient denies any tobacco usage or history of. - Family history:: not pertinent. - Hospitalizations: : No recent hospitalization is reported. ROS: 03:48 Constitutional: Negative for fever, chills, and weight loss, Eyes: Negative for injury, rn pain, redness, and discharge, Neck: Negative for injury, pain, and swelling, Cardiovascular: + chest pain Respiratory: Negative for shortness of breath, cough, wheezing, and pleuritic chest pain, Abdomen/GI: Negative for abdominal pain, nausea, vomiting, diarrhea, and constipation, MS/Extremity: + left shoulder pain Skin: Negative for injury, rash, and discoloration, Neuro: Negative for headache, weakness, numbness, tingling, and seizure. Exam: 03:37 ECG was reviewed by the Attending Physician. rn 03:48 Constitutional: This is a well developed, well nourished patient who is awake, alert, rn holding left shoulder with winces with ROM Head/Face: Normocephalic, atraumatic. Neck: Trachea midline, no thyromegaly or masses palpated, and no cervical lymphadenopathy. Supple, full range of motion without nuchal rigidity, or vertebral point tenderness. No Meningismus. Cardiovascular: Regular rate and rhythm. No pulse deficits. Respiratory: No increased work of breathing, no retractions or nasal flaring. Abdomen/GI: Soft, non-tender, no masses Skin: Warm, dry MS/ Extremity: Pulses equal, no cyanosis. Neuro: Awake and alert, GCS 15, oriented to person, place, time, and situation. Cranial nerves II-XII grossly intact. Motor strength 5/5 in all extremities. Sensory grossly intact. Cerebellar exam normal. Vital Signs: 03:01 BP 122 / 66; Pulse 81; Resp 16; Temp 98.1; Pulse Ox 100% on R/A; ha1 03:06 Weight 68.04 kg; Height 5 ft. 1 in. (154.94 cm); Pain 10/10; vc1 04:00 BP 120 / 66; Pulse 80; Resp 16 S; Pulse Ox 100% on R/A; ha1 03:06 Body Mass Index 28.34 (68.04 kg, 154.94 cm) vc1 MDM: 02:47 Patient medically screened. rn 03:55 Differential diagnosis: DJD, tendonitis, radiculopathy. Data reviewed: vital signs, rn nurses notes, lab test result(s), EKG, radiologic studies, plain films, and as a result, I will discharge patient. Independent interpretation of the following test(s) in the Emergency Department EKG: See my EKG interpretation above X-Ray: My interpretation is CXR neg for pneumothorax or pneumonia. 04:04 Counseling: I had a detailed discussion with the patient and/or guardian regarding: the rn historical points, exam findings, and any diagnostic results supporting the discharge/admit diagnosis, lab results, radiology results, the need for outpatient follow up, to return to the emergency department if symptoms worsen or persist or if there are any questions or concerns that arise at home. Response to treatment: the patient's symptoms have mildly improved after treatment, and as a result, I will discharge patient. Special discussion: I discussed with the patient/guardian in detail that at this point there is no indication for admission to the hospital. It is understood, however, that if the symptoms persist or worsen the patient needs to return immediately for re-evaluation. ED course: CXR clear, trop neg, EKG neg, stable vitals, most likely either tendonitis or radiculopathy. Will dc home with steroids and instructions for OTC anti-inflammatories. . 03/27 03:03 Order name: Basic Metabolic Panel; Complete Time: 03:55 rn 03/27 03:03 Order name: CBC with Diff; Complete Time: 03:55 rn 03/27 03:03 Order name: NT PRO-BNP; Complete Time: 03:55 rn 03/27 03:03 Order name: Troponin HS; Complete Time: 03:55 rn 03/27 03:03 Order name: XRAY Chest (1 view) 03/27 03:03 Order name: EKG; Complete Time: 03:04 03/27 03:03 Order name: Cardiac monitoring; Complete Time: 03:27 03/27 03:03 Order name: EKG - Nurse/Tech; Complete Time: 03:28 rn 03/27 03:03 Order name: IV Saline Lock; Complete Time: 03:27 rn 03/27 03:03 Order name: Labs collected and sent; Complete Time: 03:27 rn 03/27 03:03 Order name: O2 Per Protocol; Complete Time: 03:03/27 03:03 Order name: O2 Sat Monitoring; Complete Time: 03:28 rn EC:37 Rate is 79 beats/min. Rhythm is regular. QRS [place] is Normal. [place] interval is normal. QRS rn interval is normal. QT interval is normal. No Q waves. T waves are Normal. No ST changes noted. Clinical impression: Normal ECG. Interpreted by me. Reviewed by me. Administered Medications: 03:27 Drug: Ketorolac 30 mg Route: IVP; Site: right antecubital; ha1 04:00 Follow up: Response: No adverse reaction; Pain is decreased ha1 03:30 Drug: Decadron - Dexamethasone 10 mg Route: IVP; Site: right antecubital; ha1 04:00 Follow up: Response: No adverse reaction ha1 Disposition Summary: 03/27/22 04:06 Discharge Ordered Location: Home rn Problem: new rn Symptoms: have improved rn Condition: Stable rn Diagnosis - Pain in left shoulder rn Followup: rn - With: Private Physician - When: As needed - Reason: Recheck today's complaints, Re-evaluation by your physician Discharge Instructions: - Discharge Summary Sheet rn - Musculoskeletal Pain rn - Pain Without a Known Cause rn - Shoulder Pain rn Forms: - Medication Reconciliation Form rn - Thank You Letter rn - Antibiotic 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
[2022-03-27 04:46] VITALS: TEMP 98.1; O2SAT 100
[2022-03-27 05:01] VITALS: BP 120/66
--- NOTE | 2022-03-28 16:23 | RAD REPORT ---
EXAM DESCRIPTION: RAD - Chest Single View - 03/27/2022 3:26 am CLINICAL HISTORY: The patient is 41 years old and is Female; CHEST PAIN TECHNIQUE: Frontal view of the chest. COMPARISON: No relevant prior studies available. FINDINGS: Lungs: Unremarkable. No consolidation. Pleural space: Unremarkable. No pneumothorax. Heart: Unremarkable. Mediastinum: Unremarkable. Bones/joints: Unremarkable. IMPRESSION: No acute findings in the chest. Electronically signed by: Beny Almanzar MD 03/27/2022 3:37 AM SURVEILLANCE DIRECTOR Due to temporary technical issues with the PACS/Fluency reporting system, reports are being signed by the in house radiologists without review as a courtesy to insure prompt reporting. The interpreting radiologist is fully responsible for the content of the report.
--- NOTE | 2022-03-30 17:23 | EKG ---
Test Date: 2022-03-27 Test Time: 03:29:11 Skin Pass Operator: RV MEASUREMENT RESULTS: Intervals: Rate: 79 MD: 158 QRSD: 92 QT: 414 QTc: 474 Eleele: P: 57 MD: 158 QRS: 42 T: 42 INTERPRETIVE STATEMENTS: Normal sinus rhythm Normal ECG No previous ECG available for comparison Electronically Signed On 03-30-22 17:15:35 BODY WORKER by Ankur Devi
== END 2022-03-27 04:32 | disposition home or self-care (01) ==
LOC: ER 02:42
DX: M25.512 Pain in left shoulder (principal)
CPT/HCPCS: 36415; 71045; 80048; 83880; 84484; 85025; 93005; 96374; 96375; 99284; J1100

== ENCOUNTER 2024-04-23 23:42 | Emergency (ER) | payer SELFPAY ==
[2024-04-23] MEDS ORDERED: HYDROCODONE/APAP 7.5/325 MG TAB ONE (23:50)
--- NOTE | 2024-04-24 01:38 | ER ---
Nurse's Notes [facility] Name: Eden Gallardo Age: 43 yrs Sex: Female : 1980 Arrival Date: 04/23/2024 Time: 23:42 Bed 6 Private MD: Diagnosis: Pain in right shoulder Presentation: 04/23 23:51 Chief complaint: Patient states: woke up this morning with right shoulder/right arm me1 pain 10/10, squeezing. Denies injury. Coronavirus screen: Vaccine status: Patient reports being unvaccinated. Ebola Screen: No symptoms or risks identified at this time. Initial Sepsis Screen: Does the patient meet any 2 criteria? No. Patient's initial sepsis screen is negative. Does the patient have a suspected source of infection? No. Patient's initial sepsis screen is negative. Risk Assessment: Do you want to hurt yourself or someone else? Patient reports no desire to harm self or others. Onset of symptoms was April 23, 2024 at 04:00. 23:51 Method Of Arrival: Ambulatory ks1 23:51 Acuity: DIALLO 4 me1 Triage Assessment: 23:57 General: Appears uncomfortable, well groomed, well developed, well nourished, Behavior me1 is calm, cooperative, appropriate for age. Pain: Complains of pain in anterior aspect of right shoulder and posterior aspect of right shoulder Pain does not radiate. Pain currently is 10 out of 10 on a pain scale. Quality of pain is described as squeezing, Pain began this morning Is continuous. EENT: No signs and/or symptoms were reported regarding the EENT system. Neuro: Level of Consciousness is awake, alert, obeys commands, Oriented to person, place, time, situation, Appropriate for age. Cardiovascular: Patient's skin is warm and dry. Respiratory: Airway is patent Trachea midline Respiratory effort is even, unlabored, Respiratory pattern is regular, symmetrical. GI: No signs and/or symptoms were reported involving the gastrointestinal system. : No signs and/or symptoms were reported regarding the genitourinary system. Derm: Skin is intact, is healthy with good turgor, Skin is pink, warm \T\ dry. Musculoskeletal: Reports pain in anterior aspect of right shoulder and posterior aspect of right shoulder. 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 - Infectious Disease History:: Denies. - Social history:: Smoking status: Patient denies any tobacco usage or history of. Screenin/11 00:47 [facility] ED Fall Risk Assessment (Adult) History of falling in the last 3 months, cp4 including since admission No falls in past 3 months (0 pts) Confusion or Disorientation No (0 pts) Intoxicated or Sedated No (0 pts) Impaired Gait No (0 pts) Mobility Assist Device Used No (0 pt) Altered Elimination No (0 pt) Score/Fall Risk Level 0 - 2 = Low Risk Oriented to surroundings, Maintained a safe environment, Assessed \T\ reinforced patient's understanding of fall precautions, Hourly rounding (assess needs \T\ fall precautionary measures) done. Abuse screen: Denies threats or abuse. Denies injuries from another. Nutritional screening: No deficits noted. Tuberculosis screening: No symptoms or risk factors identified. Assessment: 00:47 General: Appears in no apparent distress. uncomfortable, Behavior is calm, cooperative, cp4 appropriate for age. Pain: Complains of pain in right upper arm and posterior aspect of right shoulder and anterior aspect of right shoulder and right arm Pain does not radiate. Pain currently is 8 out of 10 on a pain scale. Neuro: Level of Consciousness is awake, alert, obeys commands, Oriented to person, place, time, situation. Cardiovascular: Patient's skin is warm and dry. Respiratory: Airway is patent Respiratory effort is even, unlabored. GI: No signs and/or symptoms were reported involving the gastrointestinal system. : No signs and/or symptoms were reported regarding the genitourinary system. EENT: No signs and/or symptoms were reported regarding the EENT system. Derm: No signs and/or symptoms reported regarding the dermatologic system. Musculoskeletal: Reports pain in right upper arm and posterior aspect of right shoulder and anterior aspect of right shoulder and right arm. Vital Signs: 04/23 23:51 BP 104 / 87; Pulse 98; Resp 18; Temp 98.5; Pulse Ox 99% ; Weight 80.29 kg; Pain 11/23; me1 04/24 01:20 BP 104 / 62; Pulse 79; Resp 18; Pulse Ox 100% ; cp4 04/23 23:51 Pain Scale: Adult ks1 ED Course: 04/23 23:45 Patient arrived in ED. gm2 23:46 [facility] kb 23:46 Vic Nugent MD is Attending Physician. kb 23:53 Triage completed. me1 23:53 Arm band placed on Patient placed in waiting room. me1 04/24 00:33 Humerus Right XRAY In Process Unspecified. EDMS 00:47 UPPER EXTREMITY VENOUS UNILATE In Process Unspecified. EDMS 01:20 Amy Kebede is Primary Nurse. cp4 02:07 Bed in low position. Call light in reach. Side rails up X 1. Provided Education on: cp4 shoulder pain. 02:07 No provider procedures requiring assistance completed. Patient did not have IV access cp4 during this emergency room visit. Administered Medications: 04/23 23:56 Drug: Hydrocodone-Acetaminophen PO (7.5 mg-325 mg) 1 tabs PO once Route: PO; me1 04/24 01:49 Drug: Ketorolac IM 30 mg IM once Route: IM; Site: left deltoid; cp4 02:08 Follow up: Response: No adverse reaction; Pain is decreased cp4 Medication: 00:47 VIS not applicable for this client. cp4 Outcome: 01:37 Discharge ordered by MD. kb 02:07 Discharged to home ambulatory, cp4 02:07 Condition: stable 02:07 Discharge instructions given to patient, family, Instructed on discharge instructions, follow up and referral plans. medication usage, Demonstrated understanding of instructions, follow-up care, medications, Prescriptions given X 1, 02:07 Patient left the ED. cp4 Signatures: Dispatcher [employer] EDMS Cecile Cordova FNP-C FNP-Jada Carroll RN RN ks1 Amy Kebede cp4 Tonya Martin 2 Corrections: (The following items were deleted from the chart) 04/23 23:58 23:51 Chief complaint: Patient states: woke up this morning with right shoulder/right me1 arm pain 10/10, squeezing. me1
--- NOTE | 2024-04-24 01:38 | EDPHYS ---
Physician Documentation [facility] Name: Eden Gallardo Age: 43 yrs Sex: Female : 1980 Arrival Date: 04/23/2024 Time: 23:42 Bed 6 Private MD: ED Physician Vic Nugent HPI: 04/24 00:21 This 43 yrs old Female presents to ER via Ambulatory with complaints of kb Shoulder Pain. 00:21 Pt is a 43 year old female who presents for right shoulder pain that started this kb morning. Reports pain with movement of shoulder. Denies injury or trauma. Denies fever . 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 - Infectious Disease History:: Denies. - Social history:: Smoking status: Patient denies any tobacco usage or history of. ROS: 04/24 00:20 Constitutional: As per HPI kb Exam: 00:20 Constitutional: This is a well developed, well nourished patient who is awake, alert, kb and in no acute distress. Head/Face: Normocephalic, atraumatic. ENT: Moist Mucous membranes Cardiovascular: Regular rate Respiratory: Respirations even and unlabored. No increased work of breathing. Talking in full sentences Skin: Warm, dry with normal turgor. Normal color. Neuro: Awake and alert, GCS 15, oriented to person, place, time, and situation. 00:20 Musculoskeletal/extremity: Extremities: grossly normal except: noted in the anterior aspect of right shoulder and right upper arm: decreased ROM, pain, tenderness, ROM: limited active range of motion due to pain, Circulation is intact in all extremities. Sensation intact. Vital Signs: 04/23 23:51 BP 104 / 87; Pulse 98; Resp 18; Temp 98.5; Pulse Ox 99% ; Weight 80.29 kg; Pain 11/23; me1 04/24 01:20 BP 104 / 62; Pulse 79; Resp 18; Pulse Ox 100% ; cp4 04/23 23:51 Pain Scale: Adult me1 MDM: 04/23 23:46 Medical Screening Exam initiated kb 04/24 00:22 Data reviewed: vital signs, nurses notes. Historians other than the Patient: kb Daughter/Son: daughter. 01:36 Differential diagnosis: fracture, strain, tendonitis, dvt. Counseling: I had a detailed kb discussion with the patient and/or guardian regarding the historical points, exam findings, and any diagnostic results supporting the discharge/admit diagnosis, radiology results, the need for outpatient follow up, a family practitioner, to return to the emergency department if symptoms worsen or persist or if there are any questions or concerns that arise at home. 04/23 23:53 Order name: Humerus Right XRAY kb 04/24 00:47 Order name: UPPER EXTREMITY VENOUS UNILATE EDMS 04/24 01:38 Order name: Sling; Complete Time: 01:44 kb Administered Medications: 04/23 23:56 Drug: Hydrocodone-Acetaminophen PO (7.5 mg-325 mg) 1 tabs PO once Route: PO; me1 04/24 01:49 Drug: Ketorolac IM 30 mg IM once Route: IM; Site: left deltoid; cp4 02:08 Follow up: Response: No adverse reaction; Pain is decreased cp4 Disposition: 02:26 Co-signature as Attending Physician, Vic Nugent MD I reviewed the patient's care rt provided by the Advanced Practice Provider and agree with the diagnosis and treatment plan. Disposition Summary: 04/24/24 01:37 Discharge Ordered Notes: Location: Home kb Condition: Stable kb Diagnosis - Pain in right shoulder kb Followup: kb - With: Emergency Department - When: As needed - Reason: Worsening of condition Followup: kb - With: Private Physician - When: 2 - 3 days - Reason: Recheck today's complaints, Continuance of care, Re-evaluation by your physician Discharge Instructions: - Discharge Summary Sheet kb - Musculoskeletal Pain kb - Shoulder Pain, [id number] kb Forms: - Medication Reconciliation Form kb - Antibiotic Education kb - Prescription Opioid Use kb - Patient Portal Instructions kb - Leadership Thank You Letter kb Prescriptions: - Diclofenac Sodium 75 mg Oral tablet, delayed release (enteric coated) - take 1 tablet ORAL route 2 times per day As needed; 30 tablet; Refills: 0, kb Product Selection Permitted Signatures: Dispatcher [employer] EDHI Cecile Cordova FNP-Vic Guzman MD MD rt Jada Pickett, RN RN me1 Amy Kebede cp4 Corrections: (The following items were deleted from the chart) 04/23 23:53 23:53 Humerus Right+RAD.RAD.BRZ ordered. EDMS EDMS 53 23:53 Extremity Venous Uni Ltd+[email or web address].RAD.BRZ ordered. EDMS EDMS
[2024-04-24] MEDS ORDERED: KETOROLAC 30 MG/ML INJ ONE (01:45)
--- NOTE | 2024-04-24 02:12 | RAD REPORT ---
EXAM: UPPER EXTREMITY VENOUS UNILATE US Right Upper Extremity Venous Duplex Doppler HISTORY: pain COMPARISON: None TECHNIQUE: Grayscale, color Doppler, duplex Doppler, spectral Doppler images and analysis with compre ssion and augmentation of right upper extremity veins. FINDINGS: Right internal jugular, subclavian, axillary, brachial, basilic, cephalic, radial, and ulnar veins un remarkable without evidence of clot. IMPRESSION: No sonographic evidence of right upper extremity vein thrombosis. Electronically signed by: Sotero Maria MD 04/24/2024 01:38 AM CDT Due to temporary technical issues with the PACS/[employer] reporting system, reports are being signed by the in-house radiologist without review as a courtesy to ensure prompt reporting the interpreting radiologist is fully responsible for the content of the report. Transcribed Date/Time: 04/24/2024 2:12 AM
[2024-04-24 02:18] VITALS: TEMP 98.5
[2024-04-24 02:19] VITALS: BP 104/62; O2SAT 100
--- NOTE | 2024-04-24 05:39 | RAD REPORT ---
EXAM: XR Right Humerus, 2 or More Views CLINICAL HISTORY: PAIN TECHNIQUE: Frontal and lateral views of the right humerus. COMPARISON: No relevant prior studies available. FINDINGS: Bones/joints: Unremarkable. No acute fracture. No dislocation. Soft tissues: Unremarkable. IMPRESSION: No acute injury. Electronically signed by: Ghazala Zavala MD 04/24/2024 01:22 AM CDT RP Due to temporary technical issues with the PACS/[employer] reporting system, reports are being memo d by the in-house radiologist without review as a courtesy to ensure prompt reporting the interpreting radiologist is fully responsible for the content of the report. Transcribed Date/Time: 04/24/2024 5:38 AM
== END 2024-04-24 02:07 | disposition home or self-care (01) ==
LOC: ER 23:42
DX: M25.511 Pain in right shoulder (principal)
CPT/HCPCS: 93971; 96372; 99284